=== PATIENT | male | born 1990 | race African-American/Black ===

== ENCOUNTER 2019-05-08 17:50 | Emergency (ER) | payer SELFPAY ==
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
--- NOTE | 2019-05-08 19:12 | CR ---
INDICATION: Wrist injury TECHNIQUE: Wrist radiograph 3 views right COMPARISON: None FINDINGS: Bone: No acute fractures or aggressive bone lesions are identified. Joint: The radiocarpal, carpal, and carpometacarpal joints are unremarkable in appearance. Soft tissue: Unremarkable. No radiopaque foreign bodies are seen. IMPRESSION: 1. No acute osseous injuries or abnormalities are noted. Dictated by: Beni Li MD @ 05/08/2019 19:10:58 (Electronically Signed)
--- NOTE | 2019-05-08 19:12 | CR ---
INDICATION: Shoulder injury TECHNIQUE: Shoulder radiograph 3 views right COMPARISON: None FINDINGS: Bone: Cephalad displacement of the distal clavicle is noted by approximately 1.3 cm with several well corticated small ossicles noted along the inferior clavicle. Joint: The glenohumeral joint is unremarkable. The acromioclavicular joint is widened. Soft tissue: Unremarkable. The visualized hemithorax is unremarkable in appearance. No radiopaque foreign bodies are seen. IMPRESSION: 1. Cephalad displacement of the distal clavicle is noted by approximately 1.3 cm with several well corticated small ossicles noted along the inferior clavicle. Findings may be due to a remote AC joint injury but correlation with history and physical examination is recommended to exclude any acute injury component. Dictated by Beni Li MD @ 05/08/2019 7:09:44 PM Dictated by: Beni Li MD @ 05/08/2019 19:09:49 (Electronically Signed)
--- NOTE | 2019-05-08 19:12 | CR ---
INDICATION: Hand injury TECHNIQUE: Hand radiograph 3 views right COMPARISON: None FINDINGS: Bone: No acute fractures or aggressive bone lesions are identified. Joint: The carpal and metacarpal-phalangeal joints are unremarkable in appearance. The interphalangeal joints are normal in appearance. Soft tissue: Unremarkable. No radiopaque foreign bodies are seen. IMPRESSION: 1. No acute osseous injuries or abnormalities are noted. Dictated by: Beni Li MD @ 05/08/2019 19:11:29 (Electronically Signed)
== END 2019-05-08 19:30 | disposition home or self-care (01) ==
LOC: MW.ED 17:50
DX: S69.91XA Unspecified injury of right wrist, hand and finger(s), initial encounter (principal); M25.511 Pain in right shoulder; V49.40XA Driver injured in collision with unspecified motor vehicles in traffic accident, initial encounter; Y92.410 Unspecified street and highway as the place of occurrence of the external cause
CPT/HCPCS: 73030-26-RT; 73030-RT; 73110-26-RT; 73110-RT; 73130-26-RT; 73130-RT; 99283; 99284-25